=== PATIENT | male | born 1960 | race Caucasian/White ===

== ENCOUNTER 2018-01-19 11:00 | Inpatient (IN) | payer MEDICARE ==
[~2018-01-19] VITALS: Ht 175.3 cm; Wt 140.5 kg
--- NOTE | ~2018-01-19 | OP ---
PATIENT NAME: MEGAN JUAREZ MEDICAL RECORD: [id number] :60 LOCATION:[facility] ADMISSION DATE:01/23/18 SURGEON: YAMIL CATHERINE MD DATE OF OPERATION: 01/30/2018 SURGEON: Yamil Catherine MD INVESTOR RELATIONS DIRECTOR: None. PROCEDURE: Left ultrasound-guided thoracentesis. DESCRIPTION OF PROCEDURE: With the patient seated upright in the intensive care unit with the heart rate, blood pressure, and pulse oximetry monitored, ultrasound was used to obtain a window for aspiration of the left chest posteriorly below the tip of the scapula. After prep, local anesthetic was instilled. Catheter was used over the superior surface of the rib and a total of 800 cc of old bloody serosanguineous fluid was removed without apparent complication. Ultrasound revealed complete drainage. The patient was stable. TRANSINT:[id number] Voice Confirmation ID: [id number] DOCUMENT ID: [id number] YAMIL CATHERINE MD at 1727 CC: [id number] DICTATION DATE: 01/30/18 1237 MANUFACTURING OPERATIONS MANAGER: 01/30/18 1304 DIS IN 01/30/18 [facility] [address] [place] [address]
--- NOTE | ~2018-01-19 | OP ---
PATIENT NAME: MEGAN JUAREZ MEDICAL RECORD: [id number] :60 [facility] ADMISSION DATE:01/23/18 SURGEON: YAMIL CATHERINE MD DATE OF OPERATION: 01/23/2018 SURGEON: Yamil Catherine MD GAMEMASTER: SANDRA Santos MD and TERESITA Warren. OPERATION PERFORMED: Off-pop coronary artery bypass graft times 1 (left internal mammary artery to LAD). PREOPERATIVE DIAGNOSES: Coronary artery disease, previous coronary intervention with stent in-stent proximal LAD greater than 90% stenosis, ischemic cardiomyopathy, positive stress test. POSTOPERATIVE DIAGNOSES: Coronary artery disease, previous coronary intervention with stent in-stent proximal LAD greater than 90% stenosis, ischemic cardiomyopathy, positive stress test. Obesity. ANESTHESIA: General endotracheal anesthesia. ESTIMATED BLOOD LOSS: 1 liter with 500 cc Cell Saver retransfused. COMPLICATIONS: None. SPECIMENS: Mediastinal lymph node, frozen section negative. CONDITION: Stable. DISPOSITION: ICU. OPERATIVE FINDINGS: 1. Good quality left internal mammary artery. 2. The LAD beyond the stent at the proposed bypass site just above the bifurcation with the diagonal was unfortunately calcified and the LAD had palpable plaque for 1-2 cm beyond this. Therefore, the mid to distal vessel was bypassed where it was a 1.0 mm vessel. After initial anastomosis, there was not good Doppler flow in diastole. Therefore, the anastomosis was taken down and redone with resultant good diastolic flow. OPERATIVE INDICATION: Ischemic cardiomyopathy with positive reversible myocardium and greater than 90% proximal LAD stent in-stent disease. SUMMARY IN DETAIL: The patient was brought to the operative suite. General anesthesia was obtained. The patient was prepped and draped. Mediastinum incision was made. Subcutaneous tissue was divided by electrocautery. The sternum was divided with a saw. Left hemisternum was elevated. The left pleural cavity was entered. Left internal mammary artery and vein was taken as a pedicle graft. Sternal retractor was placed. Pericardium was opened. Heparin was given. The heart was elevated on a laparotomy pad. The vessel was stabilized. Inflow was occluded. It was opened. A 1.0 mm probe passed distally and proximally. Anastomosis was performed with findings as above and then repeated. The pedicle OPERATIVE REPORT [id number] MEGAN JUAREZ was tacked to the heart. Protamine was given. The patient was stable. Drains were placed in the mediastinum and left pleural cavity. Pericardial valve was loosely reapproximated. The left chest was evacuated and irrigated. The internal mammary harvest site was made hemostatic. Sternum was closed with wires. Fascia was closed. Subcutaneous tissue was closed. Skin was closed. Dermabond was placed. The needle and sponge counts reported correct. The patient was taken to the ICU in stable condition. TRANSINT:[id number] Voice Confirmation ID: [id number] DOCUMENT ID: [id number] YAMIL CATHERINE MD at 1611 CC: TYLER CORCORAN [id number] DICTATION DATE: 01/23/18 1326 ARC FURNACE OPERATOR: 01/23/18 1530 ADM IN [place] [id number] [place] [address]
--- NOTE | ~2018-01-19 | HP ---
PATIENT: MEGAN JUAREZ MEDICAL RECORD: [id number] ACCOUNT: [id number] LOCATION:[facility] : 60 ADMISSION DATE: 01/19/18 HISTORY AND PHYSICAL EXAMINATION MEGAN Gordon (57yo, M) ID# [id number]. Date/Time01/12/2018 11:39DGEQX50/29/[facility] Cent[facility]vice Dept.NPP_[facility] ClinicProviderDEREJE CATHERINE MDInsuranceMed Primary: [place] Insurance # : [id number] Referring Provider Name : TYLER CORCORAN Employer Name : UNKNOWN Prescription: DSTPSDIR - Member is eligible. Chief Complaint Coronary artery disease referral for opinion on CABG possibility Patient's Care Team Referring Provider (): TYLER CORCORAN: [facility], [facility] [place] [address], , Fax [phone] Referring Provider: PELON RICCI MD: [address] [place] [address], , Referring Provider: Jennifer ADAMES: [address] [place] [address], , Automotive Metalsmith: JAVON MCCALLUM MD: [address] [place] [address], , Patient's Pharmacies KATHLEEN SCHAFER 261 (ERX): [address] [place] [phone], , Vitals BP:150/90 sitting L arm 01/12/2018 11:45 am 154/90 sitting R arm 01/12/2018 11:46 amBP Cuff Size:adult 01/12/2018 11:45 am adult 01/12/2018 11:46 amHR:84,reg 01/12/2018 11:47 amHt:5 ft 6 in 01/12/2018 11:47 amWt:282 lbs 01/12/2018 11:47 amNotes:HX NE 12/03/2016 HAD BACK PAIN THIS SPRING, WHICH IS HOW NE PRESENTED, SO WENT TO PCP AND THEN TO CARDIOLOGY WHERE W/U FOR CAD CONTINUED. HAS HX OF STENTING X 2 OVER THE PAST SEVERAL YEARS. 01/12/2018 11:50 amBMI:45.5 01/12/2018 11:47 amAllergies Reviewed Allergies ASPIRIN: - bleedingAZITHROMYCIN: Facial swelling (Mild to moderate)PROCARDIA: Irregular heart rateMedications Reviewed Medications amoxicillin 500 mg dyzllcc27/05/17 filledBluestem Brandsazithromycin 250 mg vlnven83/13/18 filledBluestem Brandsbisoprolol 10 mg-hydrochlorothiazide 6.25 mg tablet TK 2 TS PO D012/30/17 filledBluestem BrandscephALEXin 500 mg aguiqoh22/27/18 filledBluestem Brandsdextroamphetamine-amphetamine 10 mg mrrtae03/14/17 filledBluestem Brandsenalapril maleate 20 mg mbxemt45/09/18 filledCo[facility] HospitalVanGogh ImagingFarxiga 10 mg tablet Take 1 tablet(s) every day by oral route.01/05/18 enteredKat Wilsongabapentin 300 mg wavvmfr45/26/18 filledBluestem BrandsLORazepam 0.5 mg tablet Take 1 tablet(s) twice a day by oral route.01/05/18 enteredKathy WilsonLORazepam 1 mg zmoteq04/30/17 filledBluestem Brandsmeloxicam 15 mg tablet Take 1 tablet(s) every day by oral route.01/05/18 enteredKathy WilsonmetFORMIN ER 500 mg tablet,extended release 24 hr11/27/17 filledBluestem Brandsmethocarbamol 750 mg /26/18 filledBluestem Brandsmupirocin 2 % topical xyxixtsz04/08/17 filledBluestem Brandsnitroglycerin 0.4 mg sublingual tablet HISTORY AND PHYSICAL [id number] MEGAN JUAREZ Place 1 tablet(s) by sublingual route.01/05/18 enteredKathy Wilsonomeprazole 20 mg capsule,delayed release Take 1 capsule(s) every day by oral route.01/05/18 enteredKat Wilsonomeprazole 40 mg capsule,delayed /30/17 [facility] HydroNovation [facility] Health Systemoseltamivir 75 mg hcvxpae17/13/18 [facility] FlexEnergypenicillin V potassium 500 mg hhdost09/29/17 [facility] HydroNovation SystemsPletal 2x daily02/16/16 enteredJaz Holleypolyethylene glycol 3350 17 gram/dose oral powder Take 17 g every day by oral route.01/05/18 [facility] Wilsonprasugrel 10 mg tablet Take 1 tablet(s) every day by oral route.01/05/18 [facility] Wilsonrosuvastatin 40 mg tablet Take 1 tablet(s) every day by oral route.01/05/18 Gavi Juansilver sulfadiazine 1 % topical cream01/31/17 [facility] HydroNovation [facility] Health Systemsulfamethoxazole 800 mg-trimethoprim 160 mg tablet Take 1 tablet(s) every 12 hours by oral route for 14 days.12/11/17 [facility] HydroNovation [facility] Health SystemToujeo SoloStar U-300 Insulin 300 unit/mL (1.5 mL) subcutaneous pen Inject 15 unit(s) every day by subcutaneous route at bedtime.01/05/18 [facility] WilsonTRYPSIN/PB 90U/87MG Grams APPLY TO AFFECTED AREA TWICE DAILY BRLOENXQ94/22/17 filledsurescriptsProblems Reviewed Problems Diabetes mellitus Hyperlipidemia Obesity Restless legs Hypertensive disorder Coronary arteriosclerosis - Onset: 01/05/2018 Pilonidal cyst with abscess Postoperative seroma History of peptic ulcer Family History Reviewed Family History Brother- Malignant neoplastic disease ( age: 55)he was adoptedSocial History Reviewed Social History Cardiology and General Smoking Status: Never smoker Non-smoker High Cholesterol: Y High blood pressure: Y Diabetes: Y Marital status: Surgical History Reviewed Surgical History Other - 01/2016 - 3 stents placed/Dr Ricketts Excision, pilonidal cyst - 11/30/2015 Other - 2009 - groin-staff infection Other - 1999 - back-disc fragment Other - 1998 - back-disc fragment Past Medical History Reviewed Past Medical History Angina: Y Chest Pain: Y HISTORY AND PHYSICAL [id number] MEGAN JUAREZ Coronary Artery Disease: Y Depression: Y Diabetes: Y Eye Problems: Y Heart Disease: Y Heart stents: Y High Blood Pressure: Y Hyperlipidemia: Y Hypertension: Y Rubella, Romansh Measles: Y Kidney Disease: (no answer) - kidney stones Uncontrolled Bleeding: (no answer) - easy bleeding due to effient Documents for Discussion N/A Screening None recorded. HPI 57-year-old male, history of previous percutaneous intervention, now with a relativ timbo small LAD vessel with severe subtotal in stent restenosis were apparently this is been intervened on twice before. The patient has obesity but has lost over 100 pounds, hyperlipidemia hypertension and diabetes mellitus. He denies symptoms specifically denying any symptoms during his stress test also denying angina dyspnea palpitations. Stress test showed 35% ejection fraction with apical scar but also some reperfusion ROS Additionally reports: as noted in the chart and reviewed with the patient Physical Exam Patient is a 57-year-old male. Constitutional: General Appearance well nourished and developed and healthy-appearing. Level of Distress NAD. Ambulation ambulating normally. Cardiovascular: Apical Impulse not displaced or no thrill. Heart Auscultati on normal s1 and s2; no murmurs, rubs, or gallops; and RRR. Arterial Pulses no abdominal aorta bruits, femoral bruits, or popliteal bruits and 2+ bilateral, carotid 2+ bilateral, femoral 2+ bilateral, popliteal 2+ bilateral, and dorsalis pedis 2+ bilatera l. Edema no edema or varicosities. Lungs: Repiratory Effort no dyspnea. Percussion no hyperresonance or dullness or flatness. Auscultation no wheezing, rhonchi, or rales / crackles and breathing sounds normal, good air movement, and CTA except as noted. Abdomen: Bowl Sounds normal. Inspection and Palpation no tenderness, guarding, masses, or rebound tenderness and soft and non-distended. Liver non-tender and no hepatomegaly. Spleen non-tender and no splenomegaly. Hernia none palpable. Musculoskeletal System: Gait And Stance normal gait and stance. Digits and Nails normal nails and no cyanosis. Neurologic: Cranial Nerves grossly intact. Reflexes DTRs 2+ bilaterally throughout. Sensation grossly intact. Lymph Nodes: Lymph Nodes no cervical LAD, supraclavicular LAD, axillary LAD, or inguinal LAD. HISTORY AND PHYSICAL [id number] MEGAN JUAREZ Eyes: Lids and Conjunctivae no discharge or pallor and non-injected. Pupils PERRLA. Cornea grossly intact. EOM EOMI. Lens clear. Sclerae non-icteric. Neck: Neck no masses, enlarged lymph nodes, or carotid bruits and supple and trachea midline. Thyroid no enlargement or nodules and non-tender. Skin: Inspection and Palpation no rash, lesions, ulcers, jaundice, or abnormal nevi. Assessment / Plan 1. Coronary arteriosclerosis I25.10: Atherosclerotic heart disease of unga coronary artery without angina pectoris Patient Instructions stop Effient, carotid Doppler study with preadmission testing Discussion Notes we discussed at length the pathogenesis of restenosis, the patient's asymptomatic nature, however the near asymptomatic nature when he had a myocardial infarction on December 03, 2016 and was admitted to the hospital with positive troponin greater than 4. stress test showing reperfusion is ominous. it is unclear why he had 2 v iability studies done in December 03 on the a the it only showed minimal mami-infarct ischemia. In general my recommendation in a patient with decreased left ventricular function and viable myocardium at risk is revascularization. I do not think it would be pham to attempt a third percutaneous intervention. The obtuse marginal disease is certainly less than 50%. the patient's was with him, we discussed the rationale for surgery, the alternatives, the benefits, the risks. He understands the risks include but are not limited to bleeding, transfusion, infection, arrhythmia, reoperation, graft closure, and rarely heart attack or and he gives consent. Films reviewed with Dr. Santos. small LAD but will attempt off-pump revascularization DEREJE CATHERINE MD at 1329 CC: [id number] DICTATION DATE: 01/12/18 1120 HAMMER SETTER: SVETA 01/17/18 1304 PRE [place] [id number] [place] [id number]
--- NOTE | ~2018-01-19 | TEE ---
PATIENT:MEGAN JUAREZ MEDICAL RECORD: [id number] LOCATION:[place] [address] AGE OF PATIENT: 57 ADMISSION DATE: 01/23/18 SEX: M REFERRING PHYSICIAN: INTERPRETING PHYSICIAN: DELICIA CHO MD TRANSESOPHAGEAL ECHOCARDIOGRAM Date: 01/23/18 HENNY CHARGE Y INDICATIONS: CABG PREMEDICATIONS: PATIENT'S RESPONSE PROCEDURE DOPPLER MEASUREMENTS: LVIT LA PA RA LVOT RVOT Asc. Ao AV Gradient Peak AV Mean AV Area MV Gradient Peak MV Mean MV Area INTERPRETATION: Doppler: 2-D: EF 55%PLUS COLOR FLOW DOPPLER NORMAL SALINE STUDY: MISCELLANOUS: DIAGNOSIS: PLAN: Nipping Machine Operator:1 Dr. Cho Broadcasting Equipment Mechanic: Judi TATE COMMENTS: FLORIN PATIENT DATE OF SERVICE: 01/23/2018 PROCEDURE: Transesophageal echo evaluation of valvular structures during bypass surgery. FINDINGS: 1. Left ventricular chamber size is within normal limits. Left ventricular systolic function is normal. Overall ejection fraction estimated at 55%. 2. Left atrium, right atrium, and right ventricle chamber sizes are within TRANSESOPHAGEAL ECHOCARDIOGRAM REPORT [id number] AZAM JUAREZ normal limits. 3. Valvular structures have normal structure and motion. 4. Doppler interrogation reveals no significant valvular insufficiency or stenosis. 5. No evidence of pericardial effusion or left ventricular thrombus. TRANSINT:[id number] Voice Confirmation ID: [id number] DOCUMENT ID: [id number] at 1218 CC: [id number] DICTATION DATE: 01/23/18 1554 PHOTONIC LABORATORY TECHNICIAN: 01/24/18 1117 ADM IN [place] [id number] [place] [address]
[~2018-01-19 11:00] MED LIST: BERBERINE PO; CATAPRES0.1 MG PO; CHLOR-TRIMETON4 MG PO; CINNAMON500 MG PO; FARXIGA10 MG PO; GLUCOPHAGE500 MG PO; HYDROCODON-ACE1 EAC7 PO; MELATONIN 3 MG1 TAB PO; NEURONTIN 300300 MG PO; PLAVIX75 MG PO; Pletal PO; ROBAXIN-750750 MG PO; SLEEP AID25 M1 PO; TRUJEO INJ; VASOTEC20 MG PO; ZIAC 10-6.25 MG1 TAB PO
[2018-01-19] MEDS ORDERED: BENADRYL50 MG PO (11:09)
[2018-01-19] MEDS ORDERED: EFFIENT10 MG PO (11:11)
[2018-01-19] MEDS ORDERED: CRESTOR40 MG PO (11:12)
[2018-01-19] MEDS ORDERED: NITROSTAT0.4 MG SL (11:12)
[2018-01-19] MEDS ORDERED: ATIVAN0.5 MG PO (11:13)
[2018-01-19] MEDS ORDERED: OMEPRAZOLE20 M1 PO (11:14)
[2018-01-19] MEDS ORDERED: BAYER CHEWABLE81 MG PO (11:14)
[2018-01-19] MEDS ORDERED: MIRALAX17 GM PO (11:14)
[2018-01-19 13:03] LABS: BASOPHILS 0.2 % (0-2); EOSINOPHILS 5.7 % (0-7); HEMATOCRIT 43.4 % (42.0-54.0); HEMOGLOBIN 14.5 g/dL (13.5-17.5); IMMATURE GRANULOCYTES 0.2 % (0-5); LYMPHOCYTES 27.4 % (15-50); MCHC 33.4 g/dL (31.0-37.0); MCV 89.9 fL (80.0-100.0); MEAN PLATELET VOLUME 9.4 fL (7.4-10.4); MONOCYTES 9.1 % (2-11); NEUTROPHILS 57.4 % (40-80); PLATELET COUNT 259 10x3/uL (130-400); RBC 4.83 10x6/uL (4.20-6.10); RDW 13.4 % (11.5-14.5); WBC 8.2 10x3/uL (4.8-10.8)
[2018-01-19 13:07] LABS: APTT 27.7 SECONDS (22.8-39.4); INR 1.16 (0.85-1.17); PROTIME 14.4 SECONDS (11.6-15.0)
[2018-01-19 13:23] LABS: ALBUMIN 3.4 g/dL (3.4-5.0); ALKALINE PHOSPHATASE 59 U/L (46-116); ALT (SGPT) 39 U/L (10-68); BILIRUBIN - TOTAL 0.38 mg/dL (0.2-1.3); CALC OSMOLALITY 281 mosm/kg (275-300); CALCIUM 9.1 mg/dL (8.5-10.1); CARBON DIOXIDE 24.8 mmol/L (21.0-32.0); CHLORIDE - SERUM 104 mmol/L (98-107); CHOLESTEROL, TOTAL 135 mg/dL (0-200); CREATININE - SERUM 0.8 mg/dL (0.6-1.3); GLUCOSE 157 mg/dL (74-106); PHOSPHOROUS 3.9 mg/dL (2.5-4.9); POTASSIUM - SERUM 4.2 mmol/L (3.5-5.1); PROTEIN - SERUM 7.9 g/dL (6.4-8.2); SODIUM 140 mmol/L (136-145); T4 THYROXIN - FREE 1.01 ng/dL (0.76-1.46); THYROID STIMULATING HORMONE 0.76 uIU/mL (0.36-3.74); UREA NITROGEN 13 mg/dL (7-18); URIC ACID 3.7 mg/dL (2.6-7.2); eGFR NON AFRICAN AMERICAN > 90 mL/min (90-120)
[2018-01-19 13:32] LABS: APPEARANCE CLEAR (CLEAR); BILIRUBIN NEGATIVE (NEGATIVE); COLOR YELLOW (YELLOW); GLUCOSE 1000 mg/dL (NEGATIVE); KETONE NEGATIVE (NEGATIVE); NITRITE NEGATIVE (NEGATIVE); PROTEIN NEGATIVE (NEGATIVE); SPECIFIC GRAVITY 1.015 (1.005-1.020); UROBILINOGEN NORMAL (NORMAL)
[2018-01-19 13:33] LABS: BACTERIA MODERATE /hpf (NONE SEEN); GRANULAR CAST RARE /lpf (NONE SEEN); HYALINE CAST OCC /lpf (NONE SEEN); MUCUS >1+ /lpf (NONE SEEN); RED CELLS - URINE 0-5 /hpf (0-5)
[2018-01-23] VITALS (41 sets, daily range): BP systolic 83–149; BP diastolic 49–85; BMI 42.2; BMI 45.4
[2018-01-23 08:47] LABS: PLT FUNCT.(P2Y12) PLAVIX 294 PRU (194-418)
[2018-01-23 14:28] LABS: CALC OSMOLALITY 288 mosm/kg (275-300); CALCIUM 7.4 mg/dL (8.5-10.1); CARBON DIOXIDE 22.9 mmol/L (21.0-32.0); CHLORIDE - SERUM 108 mmol/L (98-107); CREATININE - SERUM 0.8 mg/dL (0.6-1.3); GLUCOSE 173 mg/dL (74-106); POTASSIUM - SERUM 3.3 mmol/L (3.5-5.1); SODIUM 143 mmol/L (136-145); UREA NITROGEN 12 mg/dL (7-18); eGFR NON AFRICAN AMERICAN > 90 mL/min (90-120)
[2018-01-23 14:29] LABS: HEMATOCRIT 38.8 % (42.0-54.0); HEMOGLOBIN 12.7 g/dL (13.5-17.5); MCH 29.6 pg (26.0-34.0); MCHC 32.7 g/dL (31.0-37.0); MCV 90.4 fL (80.0-100.0); RBC 4.29 10x6/uL (4.20-6.10); RDW 13.6 % (11.5-14.5); WBC 14.5 10x3/uL (4.8-10.8)
[2018-01-23 14:34] LABS: INR 1.35 (0.85-1.17); PROTIME 16.2 SECONDS (11.6-15.0)
[2018-01-23 14:35] LABS: APTT 44.7 SECONDS (22.8-39.4)
[2018-01-24] VITALS (51 sets, daily range): BP systolic 92–141; BP diastolic 46–85; Ht 175.3 cm; Wt 140.5 kg
[2018-01-24 06:06] LABS: MCH 29.4 pg (26.0-34.0); MCHC 32.9 g/dL (31.0-37.0); MCV 89.4 fL (80.0-100.0); MEAN PLATELET VOLUME 9.4 fL (7.4-10.4); RDW 13.8 % (11.5-14.5); WBC 12.3 10x3/uL (4.8-10.8)
[2018-01-24 06:10] LABS: HEMATOCRIT 28.6 % (42.0-54.0); HEMOGLOBIN 9.4 g/dL (13.5-17.5); RBC 3.2 10x6/uL (4.20-6.10)
[2018-01-24 06:28] LABS: ALBUMIN 2.1 g/dL (3.4-5.0); ALKALINE PHOSPHATASE 33 U/L (46-116); ALT (SGPT) 24 U/L (10-68); CALC OSMOLALITY 275 mosm/kg (275-300); CALCIUM 7.1 mg/dL (8.5-10.1); CARBON DIOXIDE 26.5 mmol/L (21.0-32.0); CHLORIDE - SERUM 101 mmol/L (98-107); CREATININE - SERUM 0.9 mg/dL (0.6-1.3); GLUCOSE 171 mg/dL (74-106); PROTEIN - SERUM 5.3 g/dL (6.4-8.2); SODIUM 136 mmol/L (136-145); UREA NITROGEN 13 mg/dL (7-18); eGFR NON AFRICAN AMERICAN > 90 mL/min (90-120)
[2018-01-24 06:40] LABS: POTASSIUM - SERUM 4.1 mmol/L (3.5-5.1)
[2018-01-25] VITALS (23 sets, daily range): BP systolic 105–140; BP diastolic 49–75
[2018-01-25 05:22] LABS: HEMATOCRIT 25.3 % (42.0-54.0); HEMOGLOBIN 8.4 g/dL (13.5-17.5); MCH 29.5 pg (26.0-34.0); MCHC 33.2 g/dL (31.0-37.0); MCV 88.8 fL (80.0-100.0); MEAN PLATELET VOLUME 9.2 fL (7.4-10.4); RBC 2.85 10x6/uL (4.20-6.10); RDW 13.8 % (11.5-14.5)
[2018-01-25 05:59] LABS: ALBUMIN 2.3 g/dL (3.4-5.0); ALKALINE PHOSPHATASE 41 U/L (46-116); ALT (SGPT) 23 U/L (10-68); CALCIUM 7.4 mg/dL (8.5-10.1); CARBON DIOXIDE 23.8 mmol/L (21.0-32.0); CHLORIDE - SERUM 100 mmol/L (98-107); CREATININE - SERUM 0.7 mg/dL (0.6-1.3); POTASSIUM - SERUM 4.3 mmol/L (3.5-5.1); PROTEIN - SERUM 6.1 g/dL (6.4-8.2); SODIUM 135 mmol/L (136-145); UREA NITROGEN 14 mg/dL (7-18); eGFR NON AFRICAN AMERICAN > 90 mL/min (90-120)
[2018-01-25 06:03] LABS: CALC OSMOLALITY 277 mosm/kg (275-300); GLUCOSE 232 mg/dL (74-106)
[2018-01-26] VITALS (24 sets, daily range): BP systolic 93–129; BP diastolic 42–82
[2018-01-26 04:35] LABS: HEMATOCRIT 23.7 % (42.0-54.0); HEMOGLOBIN 7.8 g/dL (13.5-17.5); MCH 29.3 pg (26.0-34.0); MCHC 32.9 g/dL (31.0-37.0); MCV 89.1 fL (80.0-100.0); MEAN PLATELET VOLUME 9.3 fL (7.4-10.4); RBC 2.66 10x6/uL (4.20-6.10); WBC 11.3 10x3/uL (4.8-10.8)
[2018-01-26 04:58] LABS: ALBUMIN 2.3 g/dL (3.4-5.0); ALKALINE PHOSPHATASE 48 U/L (46-116); ALT (SGPT) 25 U/L (10-68); BILIRUBIN - TOTAL 0.45 mg/dL (0.2-1.3); CALCIUM 7.9 mg/dL (8.5-10.1); CHLORIDE - SERUM 99 mmol/L (98-107); POTASSIUM - SERUM 3.7 mmol/L (3.5-5.1); PROTEIN - SERUM 6.4 g/dL (6.4-8.2); SODIUM 136 mmol/L (136-145)
[2018-01-26 05:01] LABS: CALC OSMOLALITY 275 mosm/kg (275-300); CARBON DIOXIDE 30.2 mmol/L (21.0-32.0); CREATININE - SERUM 0.9 mg/dL (0.6-1.3); GLUCOSE 133 mg/dL (74-106); UREA NITROGEN 18 mg/dL (7-18); eGFR NON AFRICAN AMERICAN > 90 mL/min (90-120)
[2018-01-26 20:53] LABS: APPEARANCE CLEAR (CLEAR); BILIRUBIN NEGATIVE (NEGATIVE); COLOR YELLOW (YELLOW); GLUCOSE 1000 mg/dL (NEGATIVE); KETONE NEGATIVE (NEGATIVE); NITRITE NEGATIVE (NEGATIVE); PROTEIN NEGATIVE (NEGATIVE); UROBILINOGEN NORMAL (NORMAL)
[2018-01-27] VITALS (24 sets, daily range): BP systolic 105–134; BP diastolic 50–72
[2018-01-27 06:52] LABS: HEMATOCRIT 24.2 % (42.0-54.0); HEMOGLOBIN 7.9 g/dL (13.5-17.5); MCH 29.3 pg (26.0-34.0); MCHC 32.6 g/dL (31.0-37.0); MCV 89.6 fL (80.0-100.0); MEAN PLATELET VOLUME 9.3 fL (7.4-10.4); RBC 2.7 10x6/uL (4.20-6.10); RDW 14.3 % (11.5-14.5); WBC 9.2 10x3/uL (4.8-10.8)
[2018-01-27 06:55] LABS: ALBUMIN 2.2 g/dL (3.4-5.0); ALKALINE PHOSPHATASE 83 U/L (46-116); ALT (SGPT) 28 U/L (10-68); CALC OSMOLALITY 276 mosm/kg (275-300); CALCIUM 7.9 mg/dL (8.5-10.1); CHLORIDE - SERUM 100 mmol/L (98-107); CREATININE - SERUM 0.9 mg/dL (0.6-1.3); GLUCOSE 163 mg/dL (74-106); PROTEIN - SERUM 6.7 g/dL (6.4-8.2); SODIUM 135 mmol/L (136-145); UREA NITROGEN 21 mg/dL (7-18); eGFR NON AFRICAN AMERICAN > 90 mL/min (90-120)
[2018-01-27 06:56] LABS: POTASSIUM - SERUM 4.3 mmol/L (3.5-5.1)
[2018-01-28] VITALS (24 sets, daily range): BP systolic 96–141; BP diastolic 40–72
[2018-01-28 05:59] LABS: HEMATOCRIT 23.2 % (42.0-54.0); HEMOGLOBIN 7.6 g/dL (13.5-17.5); MCH 29.6 pg (26.0-34.0); MCHC 32.8 g/dL (31.0-37.0); MCV 90.3 fL (80.0-100.0); MEAN PLATELET VOLUME 9.2 fL (7.4-10.4); RBC 2.57 10x6/uL (4.20-6.10); RDW 14.5 % (11.5-14.5); WBC 8.2 10x3/uL (4.8-10.8)
[2018-01-28 06:19] LABS: ALBUMIN 2.1 g/dL (3.4-5.0); ALKALINE PHOSPHATASE 72 U/L (46-116); ALT (SGPT) 25 U/L (10-68); BILIRUBIN - TOTAL 0.56 mg/dL (0.2-1.3); CALC OSMOLALITY 277 mosm/kg (275-300); CARBON DIOXIDE 29.9 mmol/L (21.0-32.0); CHLORIDE - SERUM 100 mmol/L (98-107); CREATININE - SERUM 0.9 mg/dL (0.6-1.3); GLUCOSE 208 mg/dL (74-106); POTASSIUM - SERUM 4.6 mmol/L (3.5-5.1); PROTEIN - SERUM 6.5 g/dL (6.4-8.2); SODIUM 135 mmol/L (136-145); UREA NITROGEN 18 mg/dL (7-18); eGFR NON AFRICAN AMERICAN > 90 mL/min (90-120)
[2018-01-29] VITALS (24 sets, daily range): BP systolic 92–130; BP diastolic 35–88
[2018-01-30] VITALS (14 sets, daily range): BP systolic 92–134; BP diastolic 41–85
[2018-01-30 05:12] LABS: CALC OSMOLALITY 280 mosm/kg (275-300); CALCIUM 8.4 mg/dL (8.5-10.1); CARBON DIOXIDE 27.7 mmol/L (21.0-32.0); CHLORIDE - SERUM 103 mmol/L (98-107); CREATININE - SERUM 0.8 mg/dL (0.6-1.3); GLUCOSE 179 mg/dL (74-106); POTASSIUM - SERUM 4.5 mmol/L (3.5-5.1); SODIUM 138 mmol/L (136-145); UREA NITROGEN 16 mg/dL (7-18); eGFR NON AFRICAN AMERICAN > 90 mL/min (90-120)
[2018-01-30 05:23] LABS: BASOPHILS 0.4 % (0-2); EOSINOPHILS 9.1 % (0-7); HEMATOCRIT 22.6 % (42.0-54.0); IMMATURE GRANULOCYTES 0.6 % (0-5); LYMPHOCYTES 19.6 % (15-50); MCH 28.9 pg (26.0-34.0); MCHC 31.9 g/dL (31.0-37.0); MCV 90.8 fL (80.0-100.0); MEAN PLATELET VOLUME 8.9 fL (7.4-10.4); MONOCYTES 12.7 % (2-11); NEUTROPHILS 57.6 % (40-80); RBC 2.49 10x6/uL (4.20-6.10); RDW 14.7 % (11.5-14.5)
[2018-01-30 05:30] LABS: HEMOGLOBIN 7.2 g/dL (13.5-17.5); PLATELET COUNT 333 10x3/uL (130-400)
[2018-01-30] MEDS ORDERED: HEMOCYTE PLUS C1 CAP PO (15:08)
[2018-01-30] MEDS ORDERED: BENADRYL25 MG PO (15:08)
[2018-01-30] MEDS ORDERED: CORDARONE200 MG PO (15:08)
[2018-01-30] MEDS ORDERED: K-DUR20 MEQ PO (15:10)
[2018-01-30] MEDS ORDERED: LASIX40 MG PO (15:11)
[2018-01-30] MEDS ORDERED: PACERONE200 MG PO (15:12)
[2018-01-30] MEDS ORDERED: HYDROCODON-ACE1 EAC7 PO (15:12)
[2018-01-30] MEDS ORDERED: TOPROL XL50 MG PO (15:13)
== END 2018-01-30 17:13 | disposition home or self-care (01) | DRG 236 ==
LOC: D.SDCHOLD 13:00 → D.CVICU 01-23 05:00 → D.SDCHOLD 01-23 07:08 → D.CVICU 01-23 10:19 → D.SDCHOLD 01-23 13:00 → D.CVICU 01-30 17:13
PROVIDERS: Family Medicine; Internal Medicine Nephrology; Thoracic Surgery (Cardiothoracic Vascular Surgery)
PROC: B24BZZ4 Ultrasonography of Heart with Aorta, Transesophageal (ICD-10-PCS; 2018-01-23)
PROC: 05HY33Z Insertion of Infusion Device into Upper Vein, Percutaneous Approach (ICD-10-PCS; 2018-01-23)
PROC: 02100Z9 Bypass Coronary Artery, One Artery from Left Internal Mammary, Open Approach (ICD-10-PCS; principal; 2018-01-23 07:30)
PROC: 0W9B3ZZ Drainage of Left Pleural Cavity, Percutaneous Approach (ICD-10-PCS; 2018-01-30)
DX: I25.10 Atherosclerotic heart disease of native coronary artery without angina pectoris (principal); T82.855A Stenosis of coronary artery stent, initial encounter; D62 Acute posthemorrhagic anemia; J90 Pleural effusion, not elsewhere classified; Z68.42 Body mass index [BMI] 45.0-49.9, adult; I25.5 Ischemic cardiomyopathy; I10 Essential (primary) hypertension; E66.01 Morbid (severe) obesity due to excess calories; E11.9 Type 2 diabetes mellitus without complications; E78.5 Hyperlipidemia, unspecified; G25.81 Restless legs syndrome; R59.0 Localized enlarged lymph nodes

== ENCOUNTER → 2018-02-01 12:58 | Outpatient (CLI) | payer MEDICARE ==
[2018-01-24 10:55] VITALS: BMI 45.3
[~2018-02-01 12:58] MED LIST changes: +ATIVAN0.5 MG PO; +BAYER CHEWABLE81 MG PO; +BENADRYL25 MG PO; +BENADRYL50 MG PO; +CORDARONE200 MG PO; +CRESTOR40 MG PO; +EFFIENT10 MG PO; +HEMOCYTE PLUS C1 CAP PO; +K-DUR20 MEQ PO; +LASIX40 MG PO; +MIRALAX17 GM PO; +NITROSTAT0.4 MG SL; +OMEPRAZOLE20 M1 PO; +PACERONE200 MG PO; +TOPROL XL50 MG PO
[2018-02-01 13:39] LABS: HEMATOCRIT 25.1 % (42.0-54.0); HEMOGLOBIN 7.9 g/dL (13.5-17.5)
== END | disposition home or self-care (01) ==
LOC: D.RAD 12:58
PROVIDERS: Thoracic Surgery (Cardiothoracic Vascular Surgery)
DX: J90 Pleural effusion, not elsewhere classified (principal); D64.9 Anemia, unspecified; I25.10 Atherosclerotic heart disease of native coronary artery without angina pectoris

== ENCOUNTER → 2018-02-05 15:43 | Outpatient (CLI) | payer MEDICARE ==
[2018-01-24 10:55] VITALS: BMI 45.3
[2018-02-05 16:04] LABS: HEMATOCRIT 25.6 % (42.0-54.0); HEMOGLOBIN 7.7 g/dL (13.5-17.5)
== END | disposition home or self-care (01) ==
LOC: D.LAB 15:43
PROVIDERS: Thoracic Surgery (Cardiothoracic Vascular Surgery)
DX: J90 Pleural effusion, not elsewhere classified (principal); D64.9 Anemia, unspecified; I25.10 Atherosclerotic heart disease of native coronary artery without angina pectoris

== ENCOUNTER → 2018-04-10 09:53 | Outpatient (CLI) | payer MEDICARE ==
[2018-01-24 10:55] VITALS: BMI 45.3
== END | disposition home or self-care (01) ==
LOC: D.RAD 08:15
DX: J90 Pleural effusion, not elsewhere classified (principal)

== ENCOUNTER 2018-10-14 07:43 | Emergency (ER) | payer MEDICARE ==
[~2018-10-14] VITALS: Ht 175.3 cm; Wt 128.2 kg
[2018-10-14 07:48] VITALS: Ht 175.3 cm; Wt 128.2 kg
[2018-10-14] MEDS ORDERED: CLEOCIN HCL300 MG PO (07:49)
[2018-10-14] MEDS ORDERED: BACTROBAN NASAL1 GM TOPICAL (07:50)
[2018-10-14] MEDS ORDERED: TOUJEO SOL300 UNIT/1 SQ (07:55)
[2018-10-14 08:28] LABS: BASOPHILS 0.1 % (0-2); EOSINOPHILS 0 % (0-7); HEMATOCRIT 38.3 % (42.0-54.0); HEMOGLOBIN 12.8 g/dL (13.5-17.5); IMMATURE GRANULOCYTES 0.5 % (0-5); LYMPHOCYTES 8.1 % (15-50); MCH 28.4 pg (26.0-34.0); MCHC 33.4 g/dL (31.0-37.0); MCV 84.9 fL (80.0-100.0); MEAN PLATELET VOLUME 9.6 fL (7.4-10.4); MONOCYTES 13.2 % (2-11); NEUTROPHILS 78.1 % (40-80); PLATELET COUNT 300 10x3/uL (130-400); RBC 4.51 10x6/uL (4.20-6.10); RDW 16.7 % (11.5-14.5); WBC 18.3 10x3/uL (4.8-10.8)
[2018-10-14 08:42] LABS: ALBUMIN 2.7 g/dL (3.4-5.0); ANION GAP 24.2 mmol/L (8-16); BILIRUBIN - TOTAL 0.8 mg/dL (0.2-1.3); CALCIUM 9.1 mg/dL (8.5-10.1); CARBON DIOXIDE 18.8 mmol/L (21.0-32.0); CREATININE - SERUM 1.2 mg/dL (0.6-1.3); PROTEIN - SERUM 8.4 g/dL (6.4-8.2)
[2018-10-14 12:15] VITALS: BP 122/74
== END 2018-10-14 12:17 | disposition other institution (70) ==
LOC: D.ER 07:43
PROVIDERS: Family Medicine
DX: N49.2 Inflammatory disorders of scrotum (principal); E11.9 Type 2 diabetes mellitus without complications; A41.9 Sepsis, unspecified organism; I10 Essential (primary) hypertension; R50.9 Fever, unspecified; R11.0 Nausea

== ENCOUNTER 2019-04-20 06:06 | Emergency (ER) | payer MEDICARE ==
[~2019-04-20] VITALS: Ht 175.3 cm; Wt 136.1 kg
[~2019-04-20 06:06] MED LIST changes: +BACTROBAN NASAL1 GM TOPICAL; +CLEOCIN HCL300 MG PO; +TOUJEO SOL300 UNIT/1 SQ
[2019-04-20 06:10] VITALS: Ht 175.3 cm; Wt 136.1 kg
[2019-04-20] MEDS ORDERED: VASOTEC10 MG PO (06:15)
[2019-04-20] MEDS ORDERED: MAXZIDE 75/501 TAB PO (06:16)
[2019-04-20 06:35] LABS: BASOPHILS 0.1 % (0-2); EOSINOPHILS 0.2 % (0-7); HEMATOCRIT 38.7 % (42.0-54.0); HEMOGLOBIN 12.8 g/dL (13.5-17.5); IMMATURE GRANULOCYTES 0.2 % (0-5); LYMPHOCYTES 10.9 % (15-50); MCH 28.1 pg (26.0-34.0); MCHC 33.1 g/dL (31.0-37.0); MCV 84.9 fL (80.0-100.0); MEAN PLATELET VOLUME 9.2 fL (7.4-10.4); MONOCYTES 9.1 % (2-11); NEUTROPHILS 79.5 % (40-80); PLATELET COUNT 260 10x3/uL (130-400); RBC 4.56 10x6/uL (4.20-6.10); RDW 16.8 % (11.5-14.5); WBC 16.3 10x3/uL (4.8-10.8)
[2019-04-20 06:45] LABS: APPEARANCE CLEAR (CLEAR); BILIRUBIN NEGATIVE (NEGATIVE); COLOR STRAW (YELLOW); GLUCOSE 1000 mg/dL (NEGATIVE); KETONE NEGATIVE (NEGATIVE); NITRITE NEGATIVE (NEGATIVE); PROTEIN NEGATIVE (NEGATIVE); SPECIFIC GRAVITY 1.005 (1.005-1.020); UROBILINOGEN NORMAL (NORMAL)
[2019-04-20 06:46] LABS: BACTERIA NONE SEEN /hpf (NONE SEEN); EPITHELIAL CELLS 0-5 /hpf (0-5); RED CELLS - URINE 0-5 /hpf (0-5); WHITE CELLS - URINE 0-5 /hpf (0-5)
[2019-04-20 06:47] LABS: YEAST <1+ /hpf (NONE SEEN)
[2019-04-20 06:58] LABS: KETONE - SERUM NEGATIVE (NEGATIVE)
[2019-04-20 07:07] LABS: ALBUMIN 3.2 g/dL (3.4-5.0); ALKALINE PHOSPHATASE 114 U/L (46-116); ALT (SGPT) 70 U/L (10-68); BILIRUBIN - TOTAL 0.48 mg/dL (0.2-1.3); CALC OSMOLALITY 286 mosm/kg (275-300); CALCIUM 9.6 mg/dL (8.5-10.1); CARBON DIOXIDE 22.2 mmol/L (21.0-32.0); CHLORIDE - SERUM 98 mmol/L (98-107); CREATININE - SERUM 1.5 mg/dL (0.6-1.3); GLUCOSE 308 mg/dL (74-106); MAGNESIUM - SERUM 1.4 mg/dL (1.8-2.4); POTASSIUM - SERUM 4.7 mmol/L (3.5-5.1); PROTEIN - SERUM 8.5 g/dL (6.4-8.2); SODIUM 134 mmol/L (136-145); UREA NITROGEN 32 mg/dL (7-18); eGFR NON AFRICAN AMERICAN 51 mL/min (90-120)
[2019-04-20 11:06] VITALS: BP 96/47
== END 2019-04-20 11:08 | disposition other institution (70) ==
LOC: D.ER 06:06
PROVIDERS: Family Medicine
DX: N49.2 Inflammatory disorders of scrotum (principal); E11.65 Type 2 diabetes mellitus with hyperglycemia; Z79.4 Long term (current) use of insulin; B95.62 Methicillin resistant Staphylococcus aureus infection as the cause of diseases classified elsewhere